=== PATIENT | female | born 1970 | race Caucasian/White ===

== ENCOUNTER → 2017-09-14 | Outpatient (CLI) | payer OTHER ==
[~2017-09-14] MED LIST: KEFLEX500 M1 PO; NAPROSYN500 MG PO
== END | disposition home or self-care (01) ==
LOC: RAD 15:04
DX: M54.2 Cervicalgia (principal); H57.10 Ocular pain, unspecified eye; M79.602 Pain in left arm; V89.2XXD Person injured in unspecified motor-vehicle accident, traffic, subsequent encounter

== ENCOUNTER → 2017-10-09 | Outpatient (CLI) | payer OTHER ==
[2017-10-09 10:23] LABS: HEMATOCRIT 35.3 % (37.0-47.0); HEMOGLOBIN 11.1 g/dl (12.0-16.0); MEAN CELL VOLUME 91.7 fl (81.0-99.0); MEAN CORPUSCULAR HGB 28.8 pg (27.0-31.0); MEAN CORPUSCULAR HGB CONC 31.4 g/dl (33.0-37.0); MEAN PLATELET VOLUME 10.3 fl (9.6-12.3); RED BLOOD COUNT 3.85 10*6/uL (4.10-5.10); RED CELL DISTRI WIDTH 13.2 % (0-14.5); WHITE BLOOD COUNT 5.3 10*3/uL (4.8-10.8)
[2017-10-09 10:45] LABS: ALBUMIN 3.5 gm/dl (3.1-4.5); ALKALINE PHOSPHATASE 67 U/L (45-117); BUN 10 mg/dl (7-24); CHLORIDE 107 mmol/L (98-107); CHOLESTEROL 188 mg/dL (<200); CREATININE 0.84 mg/dL (0.55-1.02); FREE T4 0.88 ng/dl (0.76-1.46); HDL CHOLESTEROL 72 mg/dl (40-60); LDL CHOLESTEROL 93 mg/dL (9-159); POTASSIUM 4.3 mmol/L (3.5-5.1); SGOT/AST 20 IU/L (3-35); SGPT/ALT 28 U/L (12-78); SODIUM 140 mmol/L (136-145); TOTAL PROTEIN 7.3 gm/dL (6.4-8.2); TRIGLYCERIDES 117 mg/dl (<150); VLDL CHOLESTEROL 23 mg/dL (6-40)
== END | disposition home or self-care (01) ==
LOC: LAB 09:17
PROVIDERS: Family Medicine
DX: E78.00 Pure hypercholesterolemia, unspecified (principal); E55.9 Vitamin D deficiency, unspecified; K59.00 Constipation, unspecified; E66.9 Obesity, unspecified; R53.83 Other fatigue; R79.89 Other specified abnormal findings of blood chemistry

== ENCOUNTER → 2018-04-11 | Outpatient (CLI) | payer OTHER ==
[2018-04-11 09:28] LABS: HEMOGLOBIN 10.7 g/dl (12.0-16.0); MEAN CELL VOLUME 91.6 fl (81.0-99.0); MEAN CORPUSCULAR HGB CONC 30.6 g/dl (33.0-37.0); MEAN PLATELET VOLUME 9.3 fl (9.6-12.3); RED BLOOD COUNT 3.82 10*6/uL (4.10-5.10); RED CELL DISTRI WIDTH 13.3 % (0-14.5); WHITE BLOOD COUNT 7.2 10*3/uL (4.8-10.8)
[2018-04-11 09:54] LABS: ALBUMIN 3.1 gm/dl (3.1-4.5); ALKALINE PHOSPHATASE 62 U/L (45-117); BUN 7 mg/dl (7-24); CHLORIDE 107 mmol/L (98-107); CHOLESTEROL 226 mg/dL (<200); CREATININE 0.82 mg/dL (0.55-1.02); HDL CHOLESTEROL 65 mg/dl (40-60); LDL CHOLESTEROL 124 mg/dL (9-159); SGOT/AST 22 IU/L (3-35); SGPT/ALT 27 U/L (12-78); SODIUM 139 mmol/L (136-145); TOTAL PROTEIN 6.9 gm/dL (6.4-8.2); TRIGLYCERIDES 187 mg/dl (<150); VLDL CHOLESTEROL 37 mg/dL (6-40)
== END | disposition home or self-care (01) ==
LOC: LAB 09:04
PROVIDERS: Family Medicine
DX: M19.012 Primary osteoarthritis, left shoulder (principal); E78.00 Pure hypercholesterolemia, unspecified; E55.9 Vitamin D deficiency, unspecified

== ENCOUNTER → 2018-05-31 | Outpatient (CLI) | payer OTHER | END | disposition home or self-care (01) | LOC: MAMMO 15:03 | DX: Z12.31 Encounter for screening mammogram for malignant neoplasm of breast (principal); R92.8 Other abnormal and inconclusive findings on diagnostic imaging of breast ==

== ENCOUNTER → 2019-02-20 | Outpatient (CLI) | payer OTHER ==
[~2019-02-20] MED LIST changes: +CLARITIN10 MG PO; +CYMBALTA60 MG PO; +MAXALT10 MG PO; +Motrin,Rufen800 MG PO; +PERCOCET 5-3251 EACH PO; +PROVERA10 MG PO
== END | disposition home or self-care (01) ==
LOC: LAB 15:31
DX: N93.9 Abnormal uterine and vaginal bleeding, unspecified (principal)

== ENCOUNTER → 2019-02-28 | Day surgery (SDC) | payer OTHER ==
[2019-02-20 15:03] VITALS: BP 132/73
[~2019-02-28] VITALS: Ht 154.9 cm; Wt 93.9 kg
[2019-02-28 06:45] VITALS: BP 139/67
[2019-02-28 09:25] VITALS: BP 124/61
[2019-02-28 09:45] VITALS: BP 100/57
[2019-02-28 09:59] VITALS: BP 102/60
[2019-02-28 10:15] VITALS: BP 100/58
[2019-02-28 10:30] VITALS: BP 124/61
== END | disposition home or self-care (01) ==
LOC: SDC 02-20 13:15
DX: N93.9 Abnormal uterine and vaginal bleeding, unspecified (principal); N83.202 Unspecified ovarian cyst, left side; N83.8 Other noninflammatory disorders of ovary, fallopian tube and broad ligament; R93.89 Abnormal findings on diagnostic imaging of other specified body structures; G43.909 Migraine, unspecified, not intractable, without status migrainosus; M79.7 Fibromyalgia; K21.9 Gastro-esophageal reflux disease without esophagitis; Z87.442 Personal history of urinary calculi

== ENCOUNTER → 2019-05-01 | Outpatient (CLI) | payer OTHER ==
[2019-05-01 16:39] LABS: HEMATOCRIT 36.6 % (37.0-47.0); HEMOGLOBIN 11.2 g/dl (12.0-16.0); MEAN CELL VOLUME 91.7 fl (81.0-99.0); MEAN CORPUSCULAR HGB 28.1 pg (27.0-31.0); MEAN CORPUSCULAR HGB CONC 30.6 g/dl (33.0-37.0); MEAN PLATELET VOLUME 9.5 fl (9.6-12.3); RED BLOOD COUNT 3.99 10*6/uL (4.10-5.10); WHITE BLOOD COUNT 8.9 10*3/uL (4.8-10.8)
[2019-05-01 17:12] LABS: ALBUMIN 3.5 gm/dl (3.1-4.5); ALKALINE PHOSPHATASE 84 U/L (45-117); BUN 12 mg/dl (7-24); CHLORIDE 104 mmol/L (98-107); CREATININE 0.85 mg/dL (0.55-1.02); POTASSIUM 3.7 mmol/L (3.5-5.1); SGOT/AST 15 IU/L (3-35); SGPT/ALT 23 U/L (12-78); SODIUM 136 mmol/L (136-145); TOTAL PROTEIN 7.6 gm/dL (6.4-8.2)
== END | disposition home or self-care (01) ==
LOC: LAB 16:20
PROVIDERS: Family Medicine
DX: E55.9 Vitamin D deficiency, unspecified (principal); D64.9 Anemia, unspecified; R53.83 Other fatigue; R63.5 Abnormal weight gain

== ENCOUNTER 2020-03-30 16:58 | Inpatient (IN) | payer OTHER ==
[~2020-03-30] VITALS: Ht 154.9 cm; Wt 99.6 kg
[2020-03-30 17:07] VITALS: BP 128/71
[2020-03-30 18:33] LABS: BASO % 0.2 % (0.0-1.0); EOS # 0.1 10*3/uL (0.0-0.4); EOS % 0.8 % (1.0-4.0); HEMATOCRIT 35.5 % (37.0-47.0); LYMPH # 0.5 10*3/uL (1.3-4.4); LYMPH % 3.3 % (27.0-41.0); MEAN CELL VOLUME 91.7 fl (81.0-99.0); MEAN CORPUSCULAR HGB 28.2 pg (27.0-31.0); MEAN CORPUSCULAR HGB CONC 30.7 g/dl (33.0-37.0); MEAN PLATELET VOLUME 9.5 fl (9.6-12.3); MONO # 1.5 10*3/uL (0.1-1.0); MONO % 9.2 % (3.0-9.0); NEUT % 86.2 % (47.0-73.0); PLATELET COUNT AUTOMATED 321 10*3/uL (130-400); RED BLOOD COUNT 3.87 10*6/uL (4.10-5.10); RED CELL DISTRI WIDTH 13.6 % (0-14.5); WHITE BLOOD COUNT 16.2 10*3/uL (4.8-10.8)
[2020-03-30 18:53] LABS: ALBUMIN 3.1 gm/dl (3.1-4.5); ALKALINE PHOSPHATASE 70 U/L (45-117); BUN 8 mg/dl (7-24); CHLORIDE 110 mmol/L (98-107); CREATININE 0.88 mg/dL (0.55-1.02); LIPASE 463 U/L (73-393); POTASSIUM 3.7 mmol/L (3.5-5.1); SGOT/AST 13 IU/L (3-35); SGPT/ALT 13 U/L (12-78); SODIUM 142 mmol/L (136-145); TOTAL PROTEIN 7.1 gm/dL (6.4-8.2)
[2020-03-30 18:54] LABS: TROPONIN I < 0.015 ng/ml (<0.045)
[2020-03-30 19:27] LABS: BILIRUBIN Negative (Negative); BLOOD Negative (Negative); CLARITY Cloudy (Clear); COLOR Yellow (Yellow); GLUCOSE Negative (Negative); KETONE Negative (Negative); LEUKO ESTERASE Negative (Negative); NITRITE Negative (Negative)
[2020-03-30 19:34] LABS: BACTERIA 2+; RBC 0-2 rbc/hpf (0-2); WBC 0-2 wbc/hpf (0-5)
[2020-03-30 22:30] VITALS: BP 122/71
[2020-03-31] VITALS (9 sets, daily range): BP systolic 84–132; BP diastolic 48–81
[2020-03-31 06:20] LABS: HEMATOCRIT 33.3 % (37.0-47.0); MEAN CELL VOLUME 92.8 fl (81.0-99.0); MEAN CORPUSCULAR HGB 28.4 pg (27.0-31.0); MEAN CORPUSCULAR HGB CONC 30.6 g/dl (33.0-37.0); MEAN PLATELET VOLUME 9.9 fl (9.6-12.3); PLATELET COUNT AUTOMATED 282 10*3/uL (130-400); RED BLOOD COUNT 3.59 10*6/uL (4.10-5.10); RED CELL DISTRI WIDTH 13.8 % (0-14.5); WHITE BLOOD COUNT 16.1 10*3/uL (4.8-10.8)
[2020-03-31 06:26] LABS: ALBUMIN 2.7 gm/dl (3.1-4.5); BUN 7 mg/dl (7-24); CHLORIDE 112 mmol/L (98-107); LIPASE 272 U/L (73-393); SODIUM 143 mmol/L (136-145)
[2020-03-31 06:30] LABS: ALKALINE PHOSPHATASE 69 U/L (45-117); SGOT/AST 10 IU/L (3-35); SGPT/ALT 12 U/L (12-78); TOTAL PROTEIN 6.5 gm/dL (6.4-8.2)
[2020-03-31 08:07] LABS: PLATELET SUFFICIENCY NORMAL (NORMAL); TOTAL CELLS COUNTED 100 #CELLS
[2020-03-31] MEDS ORDERED: EMGALITY120 MG/1 M SQ (15:03)
[2020-03-31] MEDS ORDERED: VITAMIN B12 IM (15:07)
[2020-03-31] MEDS ORDERED: PRILOSEC20 M1 PO (15:09)
[2020-03-31] MEDS ORDERED: MULTIVITAMIN1 EACH PO (15:09)
[2020-04-01] VITALS: BP 113/72
[2020-04-01 08:00] VITALS: BP 116/69
[2020-04-01 16:00] VITALS: BP 118/72
[2020-04-01 20:00] VITALS: BP 116/56
[2020-04-02] VITALS: BP 123/71
[2020-04-02 06:58] LABS: CHOLESTEROL 166 mg/dL (<200); TRIGLYCERIDES 127 mg/dl (<150); VLDL CHOLESTEROL 25 mg/dL (6-40)
[2020-04-02 06:59] LABS: HDL CHOLESTEROL 48 mg/dl (40-60); LDL CHOLESTEROL 93 mg/dL (9-159)
[2020-04-02 08:00] VITALS: BP 144/90
[2020-04-02 12:00] VITALS: BP 129/82
[2020-04-02 16:00] VITALS: BP 143/85
[2020-04-02 20:00] VITALS: BP 134/79
[2020-04-03] VITALS (7 sets, daily range): BP systolic 124–157; BP diastolic 61–92
[2020-04-04] VITALS: BP 132/78
[2020-04-04 08:00] VITALS: BP 147/85
== END 2020-04-04 12:33 | disposition home or self-care (01) | DRG 241 ==
LOC: ED 16:58 → 5E 20:12 → EDHOLD 20:12 → 5E 03-31 13:10
PROVIDERS: Internal Medicine; Physician Assistant; ADMIT Internal Medicine; ATTEND Internal Medicine
PROC: 0DB78ZX Excision of Stomach, Pylorus, Via Natural or Artificial Opening Endoscopic, Diagnostic (ICD-10-PCS; principal; 2020-04-03)
DX: K29.70 Gastritis, unspecified, without bleeding (principal); K85.90 Acute pancreatitis without necrosis or infection, unspecified; K44.9 Diaphragmatic hernia without obstruction or gangrene; K21.9 Gastro-esophageal reflux disease without esophagitis; E66.01 Morbid (severe) obesity due to excess calories; G43.909 Migraine, unspecified, not intractable, without status migrainosus; F33.1 Major depressive disorder, recurrent, moderate; Z68.41 Body mass index [BMI] 40.0-44.9, adult; M79.7 Fibromyalgia; E78.5 Hyperlipidemia, unspecified; Z87.442 Personal history of urinary calculi; Z79.899 Other long term (current) drug therapy; Z98.51 Tubal ligation status; Z90.49 Acquired absence of other specified parts of digestive tract

== ENCOUNTER → 2020-04-10 | Outpatient (CLI) | payer OTHER ==
[~2020-04-10] MED LIST changes: +CEPHALEXIN500 M1 PO; +EMGALITY120 MG/1 M SQ; +MULTIVITAMIN1 EACH PO; +PRILOSEC20 M1 PO; +VITAMIN B12 IM
[2020-04-10 16:18] LABS: MEAN CELL VOLUME 94.4 fl (81.0-99.0); MEAN CORPUSCULAR HGB 28.6 pg (27.0-31.0); MEAN CORPUSCULAR HGB CONC 30.3 g/dl (33.0-37.0); MEAN PLATELET VOLUME 9.9 fl (9.6-12.3); RED BLOOD COUNT 4.13 10*6/uL (4.10-5.10); RED CELL DISTRI WIDTH 13.5 % (0-14.5); WHITE BLOOD COUNT 10.9 10*3/uL (4.8-10.8)
[2020-04-10 16:58] LABS: ALBUMIN 3.4 gm/dl (3.1-4.5); ALKALINE PHOSPHATASE 90 U/L (45-117); BUN 11 mg/dl (7-24); CHLORIDE 108 mmol/L (98-107); CREATININE 0.86 mg/dL (0.55-1.02); LIPASE 125 U/L (73-393); POTASSIUM 4.2 mmol/L (3.5-5.1); SGOT/AST 20 IU/L (3-35); SGPT/ALT 25 U/L (12-78); SODIUM 138 mmol/L (136-145); TOTAL PROTEIN 7.7 gm/dL (6.4-8.2)
== END | disposition home or self-care (01) ==
LOC: LAB 15:54
PROVIDERS: ATTEND Family Medicine
DX: K85.90 Acute pancreatitis without necrosis or infection, unspecified (principal)

== ENCOUNTER 2020-05-22 15:39 | Emergency (ER) | payer OTHER ==
[~2020-05-22] VITALS: Ht 154.9 cm; Wt 99.3 kg
[~2020-05-22 15:39] MED LIST changes: -CEPHALEXIN500 M1 PO
[2020-05-22] MEDS ORDERED: CEPHALEXIN500 M1 PO (18:19)
== END 2020-05-22 19:05 | disposition home or self-care (01) ==
LOC: ED 15:39
DX: S61.512A Laceration without foreign body of left wrist, initial encounter (principal); Z79.899 Other long term (current) drug therapy; W45.8XXA Other foreign body or object entering through skin, initial encounter; Y93.89 Activity, other specified; Y92.89 Other specified places as the place of occurrence of the external cause; Y99.8 Other external cause status

== ENCOUNTER → 2020-07-27 | Outpatient (CLI) | payer OTHER ==
[~2020-07-27] MED LIST changes: +CEPHALEXIN500 M1 PO
[2020-07-27 11:14] LABS: HEMATOCRIT 38.6 % (37.0-47.0); MEAN CELL VOLUME 90.2 fl (81.0-99.0); MEAN CORPUSCULAR HGB 28.7 pg (27.0-31.0); MEAN CORPUSCULAR HGB CONC 31.9 g/dl (33.0-37.0); MEAN PLATELET VOLUME 9.3 fl (9.6-12.3); RED BLOOD COUNT 4.28 10*6/uL (4.10-5.10); RED CELL DISTRI WIDTH 13.6 % (0-14.5); WHITE BLOOD COUNT 7.6 10*3/uL (4.8-10.8)
[2020-07-27 11:45] LABS: ALBUMIN 3.1 gm/dl (3.1-4.5); ALKALINE PHOSPHATASE 84 U/L (45-117); BUN 9 mg/dl (7-24); CHLORIDE 110 mmol/L (98-107); CHOLESTEROL 234 mg/dL (<200); CREATININE 0.88 mg/dL (0.55-1.02); HDL CHOLESTEROL 63 mg/dl (40-60); POTASSIUM 4.1 mmol/L (3.5-5.1); SGOT/AST 10 IU/L (3-35); SGPT/ALT 20 U/L (12-78); SODIUM 142 mmol/L (136-145)
[2020-07-27 11:50] LABS: LDL CHOLESTEROL 139 mg/dL (9-159); TRIGLYCERIDES 159 mg/dl (<150); VLDL CHOLESTEROL 32 mg/dL (6-40)
[2020-07-28 09:06] LABS: FOLLICLE STIMULATING HORMONE 5.5 mIU/mL (.); LUTEINIZING HORMONE 6.7 mIU/mL (.)
== END | disposition home or self-care (01) ==
LOC: LAB 10:49
PROVIDERS: ATTEND Nurse Practitioner Family
DX: R53.83 Other fatigue (principal); R61 Generalized hyperhidrosis; M79.10 Myalgia, unspecified site; N91.2 Amenorrhea, unspecified

== ENCOUNTER → 2020-12-03 | Outpatient (CLI) | payer OTHER ==
[2020-12-03 11:41] LABS: MEAN CELL VOLUME 92.6 fl (81.0-99.0); MEAN CORPUSCULAR HGB CONC 31.3 g/dl (33.0-37.0); MEAN PLATELET VOLUME 9.5 fl (9.6-12.3); RED BLOOD COUNT 4.21 10*6/uL (4.10-5.10); RED CELL DISTRI WIDTH 13.2 % (0-14.5); WHITE BLOOD COUNT 6.6 10*3/uL (4.8-10.8)
[2020-12-03 11:46] LABS: ALBUMIN 3.4 gm/dl (3.1-4.5); ALKALINE PHOSPHATASE 76 U/L (45-117); BUN 6 mg/dl (7-24); CHLORIDE 107 mmol/L (98-107); CHOLESTEROL 251 mg/dL (<200); CREATININE 0.78 mg/dL (0.55-1.02); LDL CHOLESTEROL 144 mg/dL (9-159); SGOT/AST 13 IU/L (3-35); SGPT/ALT 20 U/L (12-78); SODIUM 138 mmol/L (136-145); TOTAL PROTEIN 7.2 gm/dL (6.4-8.2); TRIGLYCERIDES 219 mg/dl (<150)
[2020-12-03 11:51] LABS: FREE T4 0.77 ng/dl (0.76-1.46)
[2020-12-03 12:51] LABS: VITAMIN D, 25-HYDROXY 35.9 ng/mL (30-100)
[2020-12-04 04:07] LABS: RHEUMATOID ARTHRITIS FACTOR 10.1 IU/mL (0.0-13.9)
== END | disposition home or self-care (01) ==
LOC: LAB 11:06
PROVIDERS: ATTEND Family Medicine
DX: E55.9 Vitamin D deficiency, unspecified (principal); M79.10 Myalgia, unspecified site; R53.83 Other fatigue; F41.1 Generalized anxiety disorder; E74.00 Glycogen storage disease, unspecified; K21.9 Gastro-esophageal reflux disease without esophagitis; R41.840 Attention and concentration deficit

== ENCOUNTER → 2020-12-30 | Outpatient (CLI) | payer OTHER | END | disposition home or self-care (01) | LOC: MAMMO 10:30 | PROVIDERS: ATTEND Obstetrics & Gynecology | DX: Z12.31 Encounter for screening mammogram for malignant neoplasm of breast (principal) ==

== ENCOUNTER → 2021-05-22 | Outpatient (CLI) | payer OTHER | LOC: RAD 11:45 | PROVIDERS: ATTEND Family Medicine | DX: J98.4 Other disorders of lung (principal); R06.02 Shortness of breath; R05.9 Cough, unspecified; Z20.822 Contact with and (suspected) exposure to COVID-19 ==

== ENCOUNTER 2021-05-24 19:57 | Emergency (ER) | payer OTHER ==
[~2021-05-24] VITALS: Wt 86.2 kg
[2021-05-24 22:14] LABS: HEMATOCRIT 34.8 % (37.0-47.0); MEAN CELL VOLUME 93.8 fl (81.0-99.0); MEAN CORPUSCULAR HGB 29.4 pg (27.0-31.0); MEAN CORPUSCULAR HGB CONC 31.3 g/dl (33.0-37.0); MEAN PLATELET VOLUME 9.2 fl (9.6-12.3); PLATELET COUNT AUTOMATED 448 10*3/uL (130-400); RED BLOOD COUNT 3.71 10*6/uL (4.10-5.10); RED CELL DISTRI WIDTH 13.3 % (0-14.5); WHITE BLOOD COUNT 7.8 10*3/uL (4.8-10.8)
[2021-05-24 22:30] LABS: ALBUMIN 2.2 gm/dl (3.1-4.5); ALKALINE PHOSPHATASE 57 U/L (45-117); BUN 6 mg/dl (7-24); CHLORIDE 109 mmol/L (98-107); POTASSIUM 3.5 mmol/L (3.5-5.1); SGOT/AST 17 IU/L (3-35); SGPT/ALT 19 U/L (12-78); SODIUM 141 mmol/L (136-145); TOTAL PROTEIN 6.5 gm/dL (6.4-8.2)
[2021-05-24 23:07] LABS: PLATELET SUFFICIENCY HIGH (NORMAL); TOTAL CELLS COUNTED 100 #CELLS
== END 2021-05-25 00:51 | disposition home or self-care (01) ==
LOC: ED 19:57
PROVIDERS: Internal Medicine
DX: U07.1 COVID-19 (principal); E88.09 Other disorders of plasma-protein metabolism, not elsewhere classified; D64.9 Anemia, unspecified; Z79.899 Other long term (current) drug therapy

== ENCOUNTER 2021-08-18 17:02 | Inpatient (IN) | payer OTHER ==
[~2021-08-18] VITALS: Ht 154.9 cm; Wt 86.2 kg
[2021-08-18 17:09] VITALS: BP 142/84
[2021-08-18] MEDS ORDERED: AJOVY AUTO225 MG/1.5 SQ (18:31)
[2021-08-18] MEDS ORDERED: OMEPRAZOLE40 MG PO (18:32)
[2021-08-18 18:37] LABS: BASO % 0.2 % (0.0-1.0); EOS # 0.2 10*3/uL (0.0-0.4); EOS % 1.4 % (1.0-4.0); HEMATOCRIT 37.3 % (37.0-47.0); LYMPH # 1.6 10*3/uL (1.3-4.4); LYMPH % 12.8 % (27.0-41.0); MEAN CELL VOLUME 93.3 fl (81.0-99.0); MEAN CORPUSCULAR HGB 29.5 pg (27.0-31.0); MEAN CORPUSCULAR HGB CONC 31.6 g/dl (33.0-37.0); MEAN PLATELET VOLUME 9.5 fl (9.6-12.3); MONO # 1.2 10*3/uL (0.1-1.0); MONO % 9.1 % (3.0-9.0); NEUT # 9.7 10*3/uL (2.3-7.9); NEUT % 76.2 % (47.0-73.0); PLATELET COUNT AUTOMATED 337 10*3/uL (130-400); RED CELL DISTRI WIDTH 13.4 % (0-14.5); WHITE BLOOD COUNT 12.7 10*3/uL (4.8-10.8)
[2021-08-18 18:52] LABS: BILIRUBIN Negative (Negative); BLOOD Negative (Negative); CLARITY Cloudy (Clear); COLOR Yellow (Yellow); GLUCOSE Negative (Negative); KETONE 1+ (Negative); LEUKO ESTERASE Negative (Negative); NITRITE Negative (Negative); SPECIFIC GRAVITY >= 1.030 (1.001-1.030)
[2021-08-18 18:58] LABS: ALKALINE PHOSPHATASE 70 U/L (45-117); BUN 11 mg/dl (7-24); CHLORIDE 107 mmol/L (98-107); CREATININE 0.78 mg/dL (0.55-1.02); POTASSIUM 4.1 mmol/L (3.5-5.1); SGOT/AST 14 IU/L (3-35); SGPT/ALT 27 U/L (12-78); SODIUM 138 mmol/L (136-145); TOTAL PROTEIN 7.5 gm/dL (6.4-8.2)
[2021-08-18 19:02] LABS: LIPASE 14889 U/L (73-393)
[2021-08-18 19:04] LABS: BACTERIA 4+; EPITHELIAL CELLS TNTC
[2021-08-18 21:04] VITALS: BP 122/72
[2021-08-18 22:15] VITALS: BP 133/77
[2021-08-18] MEDS ORDERED: VITAMIN D3125 MC1 PO (22:49)
[2021-08-18] MEDS ORDERED: CYMBALTA30 MG PO (22:49)
[2021-08-18] MEDS ORDERED: VITAMIN B-121000 MC2 PO (22:49)
[2021-08-19] VITALS: BP 133/77
[2021-08-19 07:00] LABS: LIPASE 7782 U/L (73-393)
[2021-08-19] MEDS ORDERED: RIZATRIPTAN10 M1 PO (07:04)
[2021-08-19 08:00] VITALS: BP 119/62
[2021-08-19 08:57] LABS: CHOLESTEROL 213 mg/dL (<200); LDL CHOLESTEROL 116 mg/dL (9-159); TRIGLYCERIDES 160 mg/dl (<150)
[2021-08-19 12:00] VITALS: BP 121/62
[2021-08-19 16:00] VITALS: BP 107/56
[2021-08-19 20:00] VITALS: BP 125/69
[2021-08-20] VITALS: BP 135/78
[2021-08-20 06:26] LABS: CHLORIDE 107 mmol/L (98-107); POTASSIUM 4.2 mmol/L (3.5-5.1); SODIUM 136 mmol/L (136-145)
[2021-08-20 06:29] LABS: BASO % 0.1 % (0.0-1.0); EOS # 0.2 10*3/uL (0.0-0.4); EOS % 1.2 % (1.0-4.0); HEMATOCRIT 34.8 % (37.0-47.0); LYMPH # 0.7 10*3/uL (1.3-4.4); LYMPH % 4.4 % (27.0-41.0); MEAN CELL VOLUME 93.5 fl (81.0-99.0); MEAN CORPUSCULAR HGB 29.8 pg (27.0-31.0); MEAN CORPUSCULAR HGB CONC 31.9 g/dl (33.0-37.0); MONO # 1.4 10*3/uL (0.1-1.0); MONO % 8.9 % (3.0-9.0); NEUT # 13.6 10*3/uL (2.3-7.9); PLATELET COUNT AUTOMATED 304 10*3/uL (130-400); RED BLOOD COUNT 3.72 10*6/uL (4.10-5.10); RED CELL DISTRI WIDTH 13.2 % (0-14.5)
[2021-08-20 06:41] LABS: BUN 8 mg/dl (7-24)
[2021-08-20 06:47] LABS: LIPASE 1518 U/L (73-393)
[2021-08-20 08:00] VITALS: BP 130/79
[2021-08-20 12:00] VITALS: BP 126/65
[2021-08-20 16:00] VITALS: BP 123/75
[2021-08-20 20:00] VITALS: BP 110/72
[2021-08-21] VITALS: BP 135/79
[2021-08-21 06:20] LABS: LIPASE 541 U/L (73-393)
[2021-08-21 08:00] VITALS: BP 138/90
[2021-08-21 12:00] VITALS: BP 151/92
[2021-08-21 16:00] VITALS: BP 152/82
[2021-08-21 20:00] VITALS: BP 129/71
[2021-08-22] VITALS: BP 114/76
[2021-08-22 05:55] LABS: LIPASE 250 U/L (73-393)
[2021-08-22 08:00] VITALS: BP 126/79
[2021-08-22] MEDS ORDERED: HYDROCODONE-AC1 EAC1 PO (08:39)
== END 2021-08-22 10:13 | disposition home or self-care (01) | DRG 282 ==
LOC: ED 17:02 → EDHOLD 21:03 → 4E 21:03
PROVIDERS: Physician Assistant; ADMIT Internal Medicine; ATTEND Internal Medicine
DX: K85.90 Acute pancreatitis without necrosis or infection, unspecified (principal); Z90.49 Acquired absence of other specified parts of digestive tract; M79.7 Fibromyalgia; G43.909 Migraine, unspecified, not intractable, without status migrainosus; F33.1 Major depressive disorder, recurrent, moderate; K27.9 Peptic ulcer, site unspecified, unspecified as acute or chronic, without hemorrhage or perforation

== ENCOUNTER → 2021-09-20 | Outpatient (CLI) | payer OTHER ==
[~2021-09-20] MED LIST changes: +AJOVY AUTO225 MG/1.5 SQ; +CYMBALTA30 MG PO; +HYDROCODONE-AC1 EAC1 PO; +OMEPRAZOLE40 MG PO; +RIZATRIPTAN10 M1 PO; +VITAMIN B-121000 MC2 PO; +VITAMIN D3125 MC1 PO
[2021-09-20 11:17] LABS: MEAN CELL VOLUME 91.5 fl (81.0-99.0); MEAN CORPUSCULAR HGB 29.3 pg (27.0-31.0); MEAN PLATELET VOLUME 9.3 fl (9.6-12.3); RED BLOOD COUNT 4.37 10*6/uL (4.10-5.10); RED CELL DISTRI WIDTH 13.7 % (0-14.5)
[2021-09-20 11:32] LABS: ALKALINE PHOSPHATASE 93 U/L (45-117); BUN 10 mg/dl (7-24); CHLORIDE 109 mmol/L (98-107); CREATININE 0.74 mg/dL (0.55-1.02); LIPASE 85 U/L (73-393); POTASSIUM 4.4 mmol/L (3.5-5.1); SGOT/AST 7 IU/L (3-35); SGPT/ALT 16 U/L (12-78); SODIUM 139 mmol/L (136-145); TOTAL PROTEIN 7.1 gm/dL (6.4-8.2)
== END | disposition home or self-care (01) ==
LOC: LAB 10:59
PROVIDERS: ATTEND Family Medicine
DX: G43.909 Migraine, unspecified, not intractable, without status migrainosus (principal); R10.2 Pelvic and perineal pain; K85.90 Acute pancreatitis without necrosis or infection, unspecified

== ENCOUNTER → 2022-05-26 | Outpatient (CLI) | payer OTHER ==
[2022-05-26 16:07] LABS: HEMATOCRIT 39.9 % (37.0-47.0); MEAN CELL VOLUME 93.9 fl (81.0-99.0); MEAN CORPUSCULAR HGB 30.4 pg (27.0-31.0); MEAN CORPUSCULAR HGB CONC 32.3 g/dl (33.0-37.0); MEAN PLATELET VOLUME 9.6 fl (9.6-12.3); RED BLOOD COUNT 4.25 10*6/uL (4.10-5.10); RED CELL DISTRI WIDTH 12.7 % (0-14.5); WHITE BLOOD COUNT 9.8 10*3/uL (4.8-10.8)
[2022-05-26 16:44] LABS: VITAMIN D, 25-HYDROXY 79.3 ng/mL (30-100)
[2022-05-26 17:24] LABS: ALKALINE PHOSPHATASE 74 U/L (46-116); BUN 7 mg/dl (9-23); CHLORIDE 103 mmol/L (98-107); CHOLESTEROL 259 mg/dL (<200); LDL CHOLESTEROL 160 mg/dL (9-159); POTASSIUM 3.9 mmol/L (3.4-5.1); SGPT/ALT 8 U/L (10-49); TRIGLYCERIDES 173 mg/dl (<150)
== END | disposition home or self-care (01) ==
LOC: LAB 15:40
PROVIDERS: ATTEND Family Medicine
DX: Z00.00 Encounter for general adult medical examination without abnormal findings (principal); E55.9 Vitamin D deficiency, unspecified; R53.83 Other fatigue; K21.9 Gastro-esophageal reflux disease without esophagitis; F41.1 Generalized anxiety disorder; E74.00 Glycogen storage disease, unspecified; G43.909 Migraine, unspecified, not intractable, without status migrainosus

== ENCOUNTER 2022-07-13 23:19 | Emergency (ER) | payer OTHER ==
[~2022-07-13] VITALS: Ht 154.9 cm; Wt 94.3 kg
[2022-07-13] MEDS ORDERED: LIPITOR10 MG PO (23:33)
[2022-07-13] MEDS ORDERED: EMGALITY120 MG/1 M SQ (23:33)
[2022-07-14 00:06] LABS: BASO % 0.2 % (0.0-1.0); EOS # 0.1 10*3/uL (0.0-0.4); EOS % 0.7 % (1.0-4.0); HEMATOCRIT 44.2 % (37.0-47.0); LYMPH # 1.2 10*3/uL (1.3-4.4); LYMPH % 7.2 % (27.0-41.0); MEAN CORPUSCULAR HGB 30.2 pg (27.0-31.0); MEAN CORPUSCULAR HGB CONC 32.1 g/dl (33.0-37.0); MONO # 1.2 10*3/uL (0.1-1.0); MONO % 7.4 % (3.0-9.0); NEUT # 13.8 10*3/uL (2.3-7.9); NEUT % 83.8 % (47.0-73.0); PLATELET COUNT AUTOMATED 396 10*3/uL (130-400); RED CELL DISTRI WIDTH 12.9 % (0-14.5); WHITE BLOOD COUNT 16.5 10*3/uL (4.8-10.8)
[2022-07-14 00:22] LABS: POTASSIUM 4.1 mmol/L (3.4-5.1); TOTAL PROTEIN 7.6 gm/dL (6.0-8.0)
[2022-07-14] MEDS ORDERED: ONDANSETRON4 MG SL (03:30)
== END 2022-07-14 03:31 | disposition home or self-care (01) ==
LOC: ED 23:19
PROVIDERS: Internal Medicine
DX: S00.83XA Contusion of other part of head, initial encounter (principal); K52.9 Noninfective gastroenteritis and colitis, unspecified; N17.9 Acute kidney failure, unspecified; D72.829 Elevated white blood cell count, unspecified; R55 Syncope and collapse; K21.9 Gastro-esophageal reflux disease without esophagitis; M79.7 Fibromyalgia; Z87.442 Personal history of urinary calculi; Z86.16 Personal history of COVID-19; Z90.49 Acquired absence of other specified parts of digestive tract; Z98.890 Other specified postprocedural states; W19.XXXA Unspecified fall, initial encounter; Y93.89 Activity, other specified; Y92.009 Unspecified place in unspecified non-institutional (private) residence as the place of occurrence of the external cause; Y99.8 Other external cause status

== ENCOUNTER → 2022-09-22 | Outpatient (CLI) | payer OTHER ==
[~2022-09-22] MED LIST changes: +LIPITOR10 MG PO; +ONDANSETRON4 MG SL
[2022-09-22 15:52] LABS: MEAN CELL VOLUME 94.8 fl (81.0-99.0); MEAN CORPUSCULAR HGB 30.4 pg (27.0-31.0); MEAN CORPUSCULAR HGB CONC 32.1 g/dl (33.0-37.0); MEAN PLATELET VOLUME 9.5 fl (9.6-12.3); RED BLOOD COUNT 4.01 10*6/uL (4.10-5.10); RED CELL DISTRI WIDTH 12.9 % (0-14.5)
[2022-09-22 16:34] LABS: VITAMIN D, 25-HYDROXY 47.5 ng/mL (30-100)
[2022-09-22 16:35] LABS: ALKALINE PHOSPHATASE 71 U/L (46-116); BUN 15 mg/dl (9-23); CHLORIDE 105 mmol/L (98-107); CHOLESTEROL 165 mg/dL (<200); FREE T4 0.85 ng/dl (0.89-1.76); LDL CHOLESTEROL 75 mg/dL (9-159); POTASSIUM 3.9 mmol/L (3.4-5.1); SGPT/ALT 12 U/L (10-49); THYROID STIM HORMONE (HS) 1.351 uIU/ml (0.550-4.780); TRIGLYCERIDES 217 mg/dl (<150)
== END ==
LOC: LAB 15:29
PROVIDERS: ATTEND Family Medicine
DX: E74.00 Glycogen storage disease, unspecified (principal); E78.00 Pure hypercholesterolemia, unspecified; K21.9 Gastro-esophageal reflux disease without esophagitis; E55.9 Vitamin D deficiency, unspecified; F41.1 Generalized anxiety disorder; R51.9 Headache, unspecified; R53.83 Other fatigue

== ENCOUNTER → 2022-10-20 | Outpatient (CLI) | payer OTHER ==
[2022-10-20 15:38] LABS: FREE T4 0.79 ng/dl (0.89-1.76); THYROID STIM HORMONE (HS) 1.308 uIU/ml (0.550-4.780)
== END | disposition home or self-care (01) ==
LOC: LAB 14:46
PROVIDERS: ATTEND Family Medicine
DX: E03.9 Hypothyroidism, unspecified (principal)

== ENCOUNTER 2024-04-07 12:21 | Emergency (ER) | payer OTHER ==
[~2024-04-07] VITALS: Ht 154.9 cm; Wt 93.0 kg
[2024-04-07] MEDS ORDERED: Ketorolac Tromethamine 15 MG/ML VIAL IV ONE (12:45)
[2024-04-07] MEDS ORDERED: MORPHINE Sulfate 2 MG/ML SYR IV ONE (12:45)
[2024-04-07] MEDS ORDERED: SODIUM CHLORIDE 0.9% 1,000 ML IV ONE (12:45)
[2024-04-07] MEDS ORDERED: Ondansetron Hydrochloride 4 MG/2 ML VIAL IV ONE (12:45)
[2024-04-07] MEDS ORDERED: IOHEXOL 300 MG/ML 100 ML VIAL IV ONE (12:50)
[2024-04-07 13:01] LABS: BASO % 0.2 % (0.0-1.0); EOS # 0.1 10*3/uL (0.0-0.4); EOS % 0.9 % (1.0-4.0); HEMATOCRIT 39.8 % (37.0-47.0); MEAN CELL VOLUME 94.5 fl (81.0-99.0); MEAN CORPUSCULAR HGB 31.6 pg (27.0-31.0); MEAN CORPUSCULAR HGB CONC 33.4 g/dl (33.0-37.0); MEAN PLATELET VOLUME 9.4 fl (9.6-12.3); MONO # 1.3 10*3/uL (0.1-1.0); MONO % 8.7 % (3.0-9.0); NEUT # 11.4 10*3/uL (2.3-7.9); NEUT % 76.7 % (47.0-73.0); PLATELET COUNT AUTOMATED 310 10*3/uL (130-400); RED BLOOD COUNT 4.21 10*6/uL (4.10-5.10); RED CELL DISTRI WIDTH 12.6 % (0-14.5); WHITE BLOOD COUNT 14.9 10*3/uL (4.8-10.8)
[2024-04-07 13:13] LABS: ACT PARTIAL THROMBO TIME 30.5 SECONDS (20.0-32.1)
[2024-04-07 13:22] LABS: BUN 8 mg/dl (9-23); CHLORIDE 105 mmol/L (98-107); LIPASE 31 U/L (12-53)
[2024-04-07 13:25] LABS: ALKALINE PHOSPHATASE 76 U/L (46-116); BUN 9 mg/dl (9-23); CHLORIDE 105 mmol/L (98-107); POTASSIUM 4.2 mmol/L (3.4-5.1); SGPT/ALT 13 U/L (5-49); TOTAL PROTEIN 7.2 gm/dL (6.0-8.0)
[2024-04-07] MEDS ORDERED: PERCOCET 5-3251 EACH PO (15:01)
[2024-04-07] MEDS ORDERED: Ondansetron4 MG PO (15:01)
== END 2024-04-07 15:05 | disposition home or self-care (01) ==
LOC: ED 12:21
PROVIDERS: Emergency Medicine
DX: K85.90 Acute pancreatitis without necrosis or infection, unspecified (principal); R11.2 Nausea with vomiting, unspecified; K21.9 Gastro-esophageal reflux disease without esophagitis; M79.7 Fibromyalgia; Z87.442 Personal history of urinary calculi; Z90.49 Acquired absence of other specified parts of digestive tract; Z98.890 Other specified postprocedural states